=== PATIENT | female | born 1970 | race Caucasian/White ===

== ENCOUNTER 2024-09-05 12:27 | Day surgery (SDC) | payer BC, SELFPAY ==
[2024-09-05 12:49] VITALS: BP 159/98; PULSE 100; RESP 17; TEMP 37.2; O2SAT 99; BMI 45.0
--- NOTE | 2024-09-05 13:00 | CYST_PTH ---
PATIENT: MANOHAR TYLER [place] [facility] [place][id number] AGE/SX: 54/F ROOM: RE09/05/[address]: Dr. Marcella Guzmán MD : 1970 BED: DIS: 09/05/2024 SPEC #: [id number] RECD: 09/05/24 17:01 STATUS: SIMONE RERcih #: [id number] MAIDA: 09/05/24 13:[address]: Marcella Guzmán DEPT: SURGICAL PATHOLOGY RECD BY: Torri Du ENTERED: 09/08/24 09:42 SP TYPE: Cyst OTHR DR: Dr. Trevon Dao MD Tissues: CYST Procedures: Surgery Specimen Level III HEADER OPERATION: Excision cyst right shoulder PRE-OP DIAGNOSIS: Epidermoid cyst of skin of shoulder TISSUE SUBMITTED: Epidermoid cyst of skin of right shoulder MICROSCOPIC DIAGNOSIS Right shoulder lesion, excision: Epidermal inclusion cyst. BA. 09/09/2024 MICROSCOPIC DESCRIPTION Slides are reviewed. GROSS DESCRIPTION Received in fixative is one container labeled with the patient's name and designated Epidermoid cyst of skin of right shoulder. The specimen consists of a piece of ashraf-white skin measuring 0.6 x 0.5cm and up to 0.6cm in thickness. The specimen is inked, bisected and submitted entirely in one cassette. 09/08/2024 TC:5 CPT:91329
--- NOTE | 2024-09-05 13:46 | PCM.HP.BLA ---
History and Physical Date of Admission: 09/05/24 The patient is examined and there are no changes to the H&P dated 08/12/2024. She presents for excision of the cyst of the right shoulder. She is marked in the preop holding area prior to surgery. Informed consent is obtained. Assessment & Plan Assessment/Plan (1) Epidermoid cyst of skin of shoulder: PLAN: Plan For excision cyst right shoulder
[2024-09-05 13:57] VITALS: BP 140/79; BP 141/86; O2SAT 100
[2024-09-05] MEDS: Lidocaine 1% /Epi 1:100 9 ML, Sodium Bicarbonate 1 MEQ OPERA.SITE (14:40)
--- NOTE | 2024-09-05 14:54 | DCINST_ITS ---
Discharge Instructions Dressing / Incision Additional Dressing/Incision Instructions:: May leave the dressing in place until seen in the office. You can shower over the dressing but do not scrub. If you develop itching, rash, or irritation you may remove the dressing and cover with a Band-Aid. Take the oral antibiotic (Keflex) 2 times a day until finished. Follow Up Care Please Follow Up With: Marcella Guzmán MD When: 1 to 2 weeks Test Results: Test results from this visit will be discussed in further detail at your follow- up appointment, if applicable. Discharge Plan Admission Attending Provider: Marcella Guzmán Primary Care Provider: Trevon Dao Instructions Print Language: Latvian Discharge Orders/Prescriptions Prescriptions: New cephalexin 500 mg capsule 500 mg PO BID 5 Days Qty: 10 0RF No Action levothyroxine [Levoxyl] 175 mcg tablet 175 mcg PO QDAY Referrals / Follow Up: Trevon Dao MD [Primary Care Provider] - Disposition Disposition (needs filled in before D/C Order can be placed): Home, Self Care
--- NOTE | 2024-09-05 14:57 | PCM.OPRPT ---
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 Type of Anesthesia: Local RN Documented Start/Stop Times: Operation Date: 09/05/24 13:00 Case Time Into Pre-Op 09/05/24 12:35 Into Room 09/05/24 14:04 Procedure Start 09/05/24 14:32 Procedure End 09/05/24 14:53 Anesthesia End 09/05/24 14:54 Out of Room 09/05/24 14:54 Procedure Start Time: 14:32 Procedure Stop Time: 14:53 Select all DRAINS/GRAFTS/IMPLANTS that apply: None Estimated Blood Loss: Minimal Specimen collected: Yes Description of specimen(s) removed: Neoplasm left shoulder Description of surgery: The patient presents with a residual sinus tract from a cyst of the right posterior shoulder. She presents for excision of the site and submission for pathologic valuation. The patient is brought to the operating room and placed on the operating room table in a left lateral decubitus position. The right posterior shoulder was prepped and draped in the usual sterile fashion. 1% Xylocaine with epinephrine buffered with sodium bicarb is used for local anesthetic. Following this, the site is elliptically excised and passed off the operative field to be sent to pathology. Hemostasis is controlled with cautery. The sinus tract appears to be entirely removed. The wound is closed in layers using Monocryl suture in the subcutaneous tissue and dermis. Skin edges are approximated with running subcuticular Monocryl suture. Steri-Strips and a Tegaderm are placed on the site. She tolerated the procedure well was taken to the recovery area in an awake and stable condition. Needle and sponge counts are correct. Surgical Findings: Sinus tract Complications Complications: No Admit VTE Documentation VTE Pharm Prophylaxis ordered?: No Reason prophylaxis not ordered: Treatment Not Indicated
[2024-09-05 15:02] VITALS: BP 155/85; PULSE 80; RESP 16; TEMP 37.2; O2SAT 100
== END 2024-09-05 15:11 | disposition home or self-care (01) ==
LOC: SDC 12:28 → AC 12:29
PROVIDERS: PCP Family Medicine; Referring Provider Plastic Surgery; Visit Provider Plastic Surgery
PROC: (CPT 12031; principal; 2024-09-05 12:45)
DX: L72.0 Epidermal cyst (principal)
CPT/HCPCS: 12031; 88304